=== PATIENT | female | born 1945 | race Caucasian/White ===

== ENCOUNTER 2018-04-16 06:03 | Inpatient (IN) ==
[~2018-04-16 06:03] MED LIST: Metoprolol Tartrate 25 MG Tablet PO SCH
[2018-04-16] MEDS ORDERED: Chlorhexidine Gluconate 2% 1 Pack (2 Cloths) TOPICAL SCH (06:35)
[2018-04-16] MEDS ORDERED: Metoprolol Tartrate 25 MG Tablet PO SCH (06:35)
[2018-04-16] MEDS ORDERED: Heparin - SQ 10,000 UNITS/ML Vial ONE (06:36)
[2018-04-16] MEDS ORDERED: Heparin 10,000 UNITS/10 ML Vial (for IV use) ONE ×2 (06:37→07:46)
[2018-04-16] MEDS ORDERED: Insulin Regular (For Infusion) 100 UNIT in Sodium Chlor 0.9% Inj 99 ML IV.CONT PRN (06:38)
[2018-04-16] MEDS ORDERED: Dextrose 50% in Water 50 ML Vial IV.PUSH PRN (06:38)
[2018-04-16] MEDS ORDERED: Chlorhexidine 4% Topical 120 APPLIC/120 ML Bottle TOPICAL SCH (06:45)
[2018-04-16] MEDS ORDERED: Sodium Chlor 0.9% Inj 500 ML IV.SIG SCH (07:00)
[2018-04-16] MEDS ORDERED: Vancomycin Inj 1,250 MG in Sodium Chlor 0.9% Inj 250 ML IV.SIG SCH (07:00)
[2018-04-16] MEDS ORDERED: Heparin - SQ 10,000 UNITS/ML Vial OTHER ONE (07:28)
[2018-04-16] MEDS ORDERED: Nitroglycerin Drip Premix 50 MG/250 ML BOTTLE IV.CONT ONE (07:28)
[2018-04-16] MEDS ORDERED: Aminocaproic Acid Inj 5,000 MG/20 ML Vial IV.CONT ONE (07:28)
[2018-04-16] MEDS ORDERED: Labetalol HCl Inj 100 MG/20 ML Vial IV.CONT ONE (07:28)
[2018-04-16] MEDS ORDERED: Glycopyrrolate Inj 1 MG/5 ML Syringe IV.PUSH ONE (07:28)
[2018-04-16] MEDS ORDERED: Neostigmine Inj 5 MG/5 ML Syringe IV.PUSH ONE (07:28)
[2018-04-16] MEDS ORDERED: Sod Chloride 0.9% Inj 1,000 ML IV.CONT ONE (07:28)
[2018-04-16] MEDS ORDERED: Sodium Bicarbonate 8.4% Inj 50 MEQ/50 ML Syringe IV.CONT ONE (07:28)
[2018-04-16] MEDS ORDERED: Lidocaine PF 1% Inj 5 ML Syringe OTHER ONE (07:28)
[2018-04-16] MEDS ORDERED: Artificial Tears Opth Oint 3.5 GM Tube EACH EYE ONE (07:28)
[2018-04-16] MEDS ORDERED: Atropine Inj 1 MG/10 ML Syringe IV.PUSH ONE (07:28)
[2018-04-16] MEDS ORDERED: Phenylephrine/NS 1000 MCG/10ML Syringe IV.PUSH ONE (07:28)
[2018-04-16] MEDS ORDERED: Dextrose 5% in Water Inj 100 ML IV.SIG ONE (07:28)
[2018-04-16] MEDS ORDERED: ceFAZolin 2 GM Premix Inj 2 GM/50 ML PIGGYBACK IV.SIG ONE (07:29)
[2018-04-16] MEDS ORDERED: CARDIOPLEGIC IRR IRRIGATION ONE (07:44)
[2018-04-16] MEDS ORDERED: POTASSIUM CHLOR ONE (07:45)
[2018-04-16] MEDS ORDERED: PIGGYBACK ONE (07:45)
[2018-04-16] MEDS ORDERED: Albumin Human 25% Inj 0 ML IV.SIG ONE (07:47)
[2018-04-16] MEDS ORDERED: Sugammadex Inj 200 MG/2 ML Vial IV.PUSH ONE (08:44)
--- NOTE | 2018-04-16 08:56 | P.OP ---
Date of procedure: 04/16/18 Anesthesia: VITAA Surgeon: Carmen Beatty MD Operation and Findings: PREOPERATIVE DIAGNOSES 1. Interatrial Septal Mass 2. Thickened and Lipomatous Atrial Septum POSTOPERATIVE DIAGNOSES Thickened and Lipomatous Atrial Septum SURGICAL PROCEDURE Intraoperative WILDER DEMENTIA PROGRAM DIRECTOR None ANESTHESIA General endotracheal. ORACLE ERP DEVELOPER Sonia De La Cruz CRNA, Ozzie Del Valle MD PREPARATION ChloraPrep. NEEDLE, SPONGE AND INSTRUMENT COUNT Correct. DRAINS None COMPLICATIONS None. INDICATIONS The patient is a 72-year-old lady with incidental findings of a thickened atrial septum with a possible associated right atrial mass. Patient brought to the operating room for possible surgical resection. DESCRIPTION OF PROCEDURE The patient was brought to the operating room and placed supine on the OR table. Following the induction of adequate general endotracheal anesthesia and placement of appropriate monitoring devices, the operative WILDER was performed by Dr. Del Valle. This revealed, again, the findings of a very thickened intra-atrial septum with a small area of thinned septum between the septum primum the septum secundum but no identifiable distinct atrial mass. The thickened lipomatous septum extended all the way up to the aortic annulus with no distinct area of separation into a normal septal thickness. Additionally no pedunculated masses were identified in the right or left atrium. Given the above findings, and after lengthy discussion with anesthesia, Dr. Mims, and the family, it was decided not to proceed with surgical intervention at this point due to the lack of a distinct mass. The plan will be to repeat the WILDER in 3-6 months. Should there be a distinct finding of an intra-atrial mass, the discussion of surgical therapy will be re-introduced at that point. Patient was awakened from general anesthesia and transferred to recovery room in stable condition. The patient will be discharged home from the PACU.
[2018-04-16] MEDS ORDERED: fentaNYL Citrate Inj 250 MCG/5 ML Ampul ONE ×2 (09:15)
--- NOTE | 2018-04-16 10:12 | XR ---
EXAM DATE: 04/16/2018 10:07 AM EST AGE/SEX: 72 years / Female INDICATIONS: Evaluate post central line placement. CLINICAL DATA: This is the patient's subsequent encounter. Patient reports that signs and symptoms h ave been present for 4 - 6 days and indicates a pain score of Nonresponsive. MEDICAL/SURGICAL HISTORY: Diabetes mellitus type II. Hypertension. None. COMPARISON: No prior exams available for comparison. FINDINGS: The heart size is enlarged. There appears to be a calcified granuloma in the left lower lung projecti ng over the heart. There some minimal linear density at the lateral right base. A significant effusio n is not clearly seen. There is a left subclavian line in good position overlying the SVC. A pneumoth orax is not seen. Spurs are seen in the thoracic spine. Clips are seen in the right upper quadrant. CONCLUSION: Left subclavian line in good position. Minimal suspected atelectasis at the lateral right lung base. Enlargement of cardiac silhouette. Electronically signed by: Eyad Nieto MD Board Certified Radiologist 04/16/2018 10:11 AM EST
[2018-04-16 11:29] VITALS: RESP 18; O2SAT 97
[2018-04-16 13:53] VITALS: BP 97/65; PULSE 74; TEMP 98
== END 2018-04-16 11:26 | disposition home or self-care (01) | DRG 303 ==
LOC: HSDI 06:03
PROVIDERS: ADMIT Thoracic Surgery (Cardiothoracic Vascular Surgery); ATTEND Thoracic Surgery (Cardiothoracic Vascular Surgery)
CPT/HCPCS: 71010; 71045; 82948; 82962; 86850; 86900; 86901; 86923; 93312; 93318; 99211; G0463; J0461; J0690; J1644; J2150; J2250; J2370; J2405; J2704; J2710; J3010; J3370; J3480; J7030; J7060; J7120; P9047